=== PATIENT | male | born 1975 | race African-American/Black ===

== ENCOUNTER 2017-02-10 10:43 | Emergency (ER) | payer SELFPAY ==
[2017-02-10] MEDS ORDERED: diphenhydrAMINE HCl 50 MG/ML 1 ML VIAL ONE (11:29)
[2017-02-10] MEDS ORDERED: Metoclopramide HCl 10 MG/2 ML VIAL ONE (11:29)
[2017-02-10] MEDS ORDERED: Sodium Chloride 0.9% 0 ML ONE (11:30)
[2017-02-10] MEDS ORDERED: Sodium Chloride 0.9% 100 ML ONE (11:30)
[2017-02-10 11:43] LABS: #Basophils 0.1 thou/uL (0.0-0.2); #Eosinphils 0.1 thou/uL (0.0-0.7); #Lymphocytes 0.9 thou/uL (1.20-3.40); #Monocytes 0.7 thou/uL (0.11-0.59); #Neutrophils 5.3 thou/uL (1.40-6.50); %Basophils 1.1 % (0.0-1.0); %Eosinophils 2.1 % (0.0-10.0); %Lymphocytes 12.6 % (21.0-51.0); %Monocytes 9.5 % (0.0-10.0); %Neutrophils 74.7 % (42.0-75.0); Hemoglobin 14.3 g/dL (14.0-18.0); Mean Corpuscular HGB CONC 33.9 g/dL (32.0-36.0); Mean Corpuscular Hemoglobin 27.5 pg (27.0-31.0); Mean Corpuscular Volume 81.2 fl (80.0-94.0); Mean Platelet Volume 12.6 fL (7.4-10.4); Platelet Count 138 thou/uL (130-400); RBC Distribution Width 12.6 % (11.5-14.5); Red Blood Cell (RBC) Count 5.19 mill/uL (4.70-6.10); White Blood Cell (WBC) Count 7.1 thou/uL (4.8-10.8)
[2017-02-10 11:52] LABS: ALT (SGPT) 28 U/L (0-55); AST (SGOT) 19 U/L (5-34); Albumin 3.9 g/dL (3.5-5.0); Alkaline Phosphatase 66 U/L (40-150); Anion Gap 13 mmol/L (10-20); BUN (Urea Nitrogen) 11 mg/dL (8.9-20.6); Bilirubin, Total 1.5 mg/dL (0.2-1.2); CK (CPK) 172 U/L (30-200); Calc. Creatinine Clearance 0 mL/min (70-130); Calcium 9.2 mg/dL (7.8-10.44); Carbon Dioxide 26 mmol/L (22-29); Chloride 102 mmol/L (98-107); Estimated GFR-MDRD Greater than 90; Globulin 3.6 g/dL (2.4-3.5); Glucose 90 mg/dL (70-105); Potassium 3.6 mmol/L (3.5-5.1); Protein, Total 7.5 g/dL (6.0-8.3); Sodium 137 mmol/L (136-145)
[2017-02-10 11:54] LABS: CKMB 2.1 ng/mL (0-6.6); Troponin I Less than 0.010 ng/mL (< 0.028)
[2017-02-10 12:17] LABS: Bilirubin Negative (Negative); Blood, Urine Negative (Negative); Clarity Clear (Clear); Glucose, Urine (Dipstick) Negative (Negative); Leukocyte Negative (Negative); Nitrite Negative (Negative); Protein, Urine (Dipstick) Negative (Neg-Trace)
[2017-02-10 13:09] LABS: Bacteria/HPF None Seen HPF (None Seen); RBC/HPF None Seen HPF (0-3); Squamous Epithelial 0-3 HPF (0-3); WBC/HPF 0-3 HPF (0-3)
== END 2017-02-10 12:29 | disposition home or self-care (01) ==
LOC: NAV ERS 10:43
DX: G43.909 Migraine, unspecified, not intractable, without status migrainosus (principal); R07.9 Chest pain, unspecified; I10 Essential (primary) hypertension; E78.5 Hyperlipidemia, unspecified; F17.210 Nicotine dependence, cigarettes, uncomplicated; Z79.899 Other long term (current) drug therapy
CPT/HCPCS: 36415; 80053; 81001; 82550; 82553; 84484; 85025; 93005; 96374; 96375; J1200; J2765; J7050

== ENCOUNTER 2017-03-19 08:05 | Emergency (ER) | payer SELFPAY ==
[2017-03-19] MEDS ORDERED: Acetaminophen 325 MG TAB ONE (09:04)
== END 2017-03-19 09:10 | disposition home or self-care (01) ==
LOC: NAV ERS 08:05
DX: B34.9 Viral infection, unspecified (principal); G47.30 Sleep apnea, unspecified; I10 Essential (primary) hypertension; E78.5 Hyperlipidemia, unspecified; E78.00 Pure hypercholesterolemia, unspecified; F17.210 Nicotine dependence, cigarettes, uncomplicated; Z79.899 Other long term (current) drug therapy
CPT/HCPCS: 87081; 87430; 99284

== ENCOUNTER 2017-05-29 16:39 | Emergency (ER) | payer OTHER ==
--- NOTE | 2017-05-29 17:22 | RAD ---
EXAM: LEFT WRIST THREE VIEWS 05/29/17 HISTORY: Pain. COMPARISON: None. FINDINGS: The intercarpal and radiocarpal joint space is preserved. No fracture. IMPRESSION: Unremarkable left wrist three views. POS: [facility]
== END 2017-05-29 17:37 | disposition home or self-care (01) ==
LOC: NAV ERS 16:39
DX: S63.502A Unspecified sprain of left wrist, initial encounter (principal); I10 Essential (primary) hypertension; E78.5 Hyperlipidemia, unspecified; F17.210 Nicotine dependence, cigarettes, uncomplicated; Z79.899 Other long term (current) drug therapy; W20.8XXA Other cause of strike by thrown, projected or falling object, initial encounter
CPT/HCPCS: 29125

== ENCOUNTER 2017-07-07 17:34 | Emergency (ER) | payer OTHER ==
[2017-07-07] MEDS ORDERED: Ketorolac Tromethamine 60 MG/2 ML VIAL ONE (17:55)
== END 2017-07-07 19:40 | disposition home or self-care (01) ==
LOC: NAV ERS 17:34
DX: M77.11 Lateral epicondylitis, right elbow (principal); I10 Essential (primary) hypertension; E78.5 Hyperlipidemia, unspecified; F17.210 Nicotine dependence, cigarettes, uncomplicated; Z79.899 Other long term (current) drug therapy
CPT/HCPCS: 96372; J1885

== ENCOUNTER 2017-08-12 15:41 | Emergency (ER) | payer SELFPAY, OTHER | END 2017-08-12 16:35 | disposition home or self-care (01) | LOC: NAV ERS 15:41 | DX: M77.9 Enthesopathy, unspecified (principal); E78.5 Hyperlipidemia, unspecified; I10 Essential (primary) hypertension; F17.210 Nicotine dependence, cigarettes, uncomplicated | CPT/HCPCS: 96372; J2270 ==

== ENCOUNTER 2018-01-29 10:10 | Emergency (ER) | payer OTHER ==
[2018-01-29] MEDS ORDERED: Nitroglycerin 0.4 MG TAB (25 Tab Bottle) ONE (10:32)
[2018-01-29 10:40] LABS: #Eosinphils 0.2 thou/uL (0.0-0.7); #Lymphocytes 1.2 thou/uL (1.20-3.40); #Monocytes 0.3 thou/uL (0.11-0.59); #Neutrophils 2.6 thou/uL (1.40-6.50); %Basophils 0.8 % (0.0-1.0); %Eosinophils 3.7 % (0.0-10.0); %Lymphocytes 28.2 % (21.0-51.0); %Monocytes 6.3 % (0.0-10.0); Hemoglobin 15.4 g/dL (14.0-18.0); Mean Corpuscular HGB CONC 33.2 g/dL (32.0-36.0); Mean Corpuscular Hemoglobin 27.3 pg (27.0-31.0); Mean Corpuscular Volume 82.1 fl (80.0-94.0); Mean Platelet Volume 12.5 fL (7.4-10.4); Platelet Count 154 thou/uL (130-400); RBC Distribution Width 13.2 % (11.5-14.5); Red Blood Cell (RBC) Count 5.65 mill/uL (4.70-6.10); White Blood Cell (WBC) Count 4.2 thou/uL (4.8-10.8)
[2018-01-29] MEDS ORDERED: Acetaminophen 500 MG TAB ONE (10:42)
[2018-01-29 10:54] LABS: ALT (SGPT) 40 U/L (8-55); AST (SGOT) 25 U/L (5-34); Albumin 4.3 g/dL (3.5-5.0); Alkaline Phosphatase 86 U/L (40-150); Anion Gap 14 mmol/L (10-20); BUN (Urea Nitrogen) 12 mg/dL (8.9-20.6); Bilirubin, Total 0.9 mg/dL (0.2-1.2); Calc. Creatinine Clearance 0 mL/min (70-130); Carbon Dioxide 28 mmol/L (22-29); Chloride 100 mmol/L (98-107); Estimated GFR-MDRD Greater than 90; Globulin 3.7 g/dL (2.4-3.5); Glucose 133 mg/dL (70-105); Potassium 3.8 mmol/L (3.5-5.1); Sodium 138 mmol/L (136-145)
[2018-01-29 10:55] LABS: CKMB 5.6 ng/mL (0-6.6); Troponin I Less than 0.010 ng/mL (< 0.028)
--- NOTE | 2018-01-29 10:59 | RAD ---
PA AND LATERAL OF THE CHEST: INDICATION: Chest pain, chest tightness, and shortness of breath since yesterday morning. COMPARISON: Prior exam dated 12/26/05 and 07/22/16. FINDINGS: There is very mild cardiomegaly which is stable. The pulmonary vasculature is normal. The lungs are clear. No pleural effusion is evident. No acute osseous abnormality is evident. IMPRESSION: Stable examination of the chest. There is stable mild cardiomegaly without evidence of cardiac decom pensation. POS: [facility]
[2018-01-29 14:44] LABS: Troponin I Less than 0.010 ng/mL (< 0.028)
== END 2018-01-29 14:54 | disposition home or self-care (01) ==
LOC: NAV ERS 10:10
DX: R07.89 Other chest pain (principal); I10 Essential (primary) hypertension; E78.5 Hyperlipidemia, unspecified; F17.210 Nicotine dependence, cigarettes, uncomplicated; Z79.899 Other long term (current) drug therapy
CPT/HCPCS: 71046; 80053; 82553; 84484; 85025; 93005; 99406

== ENCOUNTER 2018-04-23 20:05 | Emergency (ER) | payer OTHER ==
[2018-04-23] MEDS ORDERED: cloNIDine 0.1 MG TAB ONE (20:44)
--- NOTE | 2018-04-23 20:52 | RAD ---
RADIOGRAPH LEFT WRIST 3 VIEWS: 04/23/18 HISTORY: 42-year-old male with left wrist pain. FINDINGS: No fracture is identified. If there is snuff box tenderness following trauma that suggests an occult scaphoid fracture, then the general recommendation is immobilization and followup imaging in 5 to 10 days. Alignment is normal. No high grade DJD. No periosteal elevation or destructive osseous lesion. IMPRESSION: Negative. POS: [facility]
[2018-04-23] MEDS ORDERED: Naproxen 500 MG TAB ONE (21:16)
[2018-04-23] MEDS ORDERED: traMADol HCl 50 MG TAB ONE (21:16)
== END 2018-04-23 21:23 | disposition home or self-care (01) ==
LOC: NAV ERS 20:05
DX: M77.9 Enthesopathy, unspecified (principal); I10 Essential (primary) hypertension; E78.5 Hyperlipidemia, unspecified; F17.210 Nicotine dependence, cigarettes, uncomplicated; Z79.899 Other long term (current) drug therapy

== ENCOUNTER 2018-07-13 18:52 | Emergency (ER) | payer OTHER, SELFPAY ==
[2018-07-13] MEDS ORDERED: Ketorolac Tromethamine 60 MG/2 ML VIAL ONE (19:06)
[2018-07-13] MEDS ORDERED: Cyclobenzaprine 10 MG TAB ONE (19:06)
== END 2018-07-13 20:05 | disposition home or self-care (01) ==
LOC: NAV ERS 18:52
DX: R07.9 Chest pain, unspecified (principal); M54.2 Cervicalgia; E78.5 Hyperlipidemia, unspecified; I10 Essential (primary) hypertension; F17.210 Nicotine dependence, cigarettes, uncomplicated; Z79.899 Other long term (current) drug therapy; Z79.891 Long term (current) use of opiate analgesic
CPT/HCPCS: 96372; J1885

== ENCOUNTER 2019-04-01 19:49 | Emergency (ER) | payer SELFPAY ==
[2019-04-01] MEDS ORDERED: Naproxen 500 MG TAB ONE (20:20)
[2019-04-01] MEDS ORDERED: cloNIDine 0.2 MG TAB ONE (20:20)
== END 2019-04-01 21:10 | disposition home or self-care (01) ==
LOC: NAV ERS 19:49
DX: S29.012A Strain of muscle and tendon of back wall of thorax, initial encounter (principal); I10 Essential (primary) hypertension; E78.5 Hyperlipidemia, unspecified; G43.909 Migraine, unspecified, not intractable, without status migrainosus; F17.210 Nicotine dependence, cigarettes, uncomplicated; Z79.899 Other long term (current) drug therapy; X50.9XXA Other and unspecified overexertion or strenuous movements or postures, initial encounter
CPT/HCPCS: 93005

== ENCOUNTER 2019-07-07 18:48 | Emergency (ER) | payer SELFPAY ==
[2019-07-07 19:57] LABS: #Basophils 0.1 thou/uL (0.0-0.2); #Eosinphils 0.2 thou/uL (0.0-0.7); #Lymphocytes 1.9 thou/uL (1.20-3.40); #Monocytes 0.4 thou/uL (0.11-0.59); #Neutrophils 2.1 thou/uL (1.40-6.50); %Basophils 1.2 % (0.0-1.0); %Eosinophils 3.9 % (0.0-10.0); %Lymphocytes 41.5 % (21.0-51.0); %Monocytes 8.7 % (0.0-10.0); %Neutrophils 44.8 % (42.0-75.0); Hemoglobin 13.6 g/dL (14.0-18.0); Mean Corpuscular HGB CONC 33.4 g/dL (32.0-36.0); Mean Corpuscular Hemoglobin 27.2 pg (27.0-31.0); Mean Corpuscular Volume 81.5 fL (78.0-98.0); Mean Platelet Volume 9.8 fL (7.4-10.4); Platelet Count 145 thou/uL (130-400); RBC Distribution Width 13.2 % (11.5-14.5); Red Blood Cell (RBC) Count 5.01 mill/uL (4.70-6.10); White Blood Cell (WBC) Count 4.6 thou/uL (4.8-10.8)
[2019-07-07] MEDS ORDERED: Morphine 4 MG/ML VIAL ONE (20:16)
[2019-07-07] MEDS ORDERED: Ondansetron PF 4 MG/2 ML Vial ONE (20:16)
[2019-07-07 20:17] LABS: Anion Gap 14 mmol/L (10-20); BUN (Urea Nitrogen) 16 mg/dL (8.9-20.6); Calc. Creatinine Clearance 0 mL/min (70-130); Calcium 9.6 mg/dL (7.8-10.44); Carbon Dioxide 27 mmol/L (22-29); Chloride 101 mmol/L (98-107); Estimated GFR-MDRD Greater than 90; Glucose 106 mg/dL (70-105); Potassium 3.3 mmol/L (3.5-5.1); Sodium 139 mmol/L (136-145)
--- NOTE | 2019-07-07 20:38 | CT ---
POSTCONTRAST SOFT TISSUE NECK CT 07/07/19 HISTORY: Injury. Neck pain starting around 4 p.m. today. COMPARISON: 03/20/17. FINDINGS: The visualized brain parenchyma is unremarkable. Bilateral ocular lenses are appropriately located B oth globes are intact. Retrobulbar fat is preserved. Symmetric attenuation of the optic nerves and oc ular rectus muscles. Mild mucosa disease of the maxillary sinuses. Adequate mastoid air cell aeration. There is nonspecific fullness of the adenoid tonsils and palatine tonsils. There are no obvious anny s in the oral cavity. Midline fatty raphae of the tongue is preserved. Hypertrophy of Waldeyer's rin g is similar to the previous examination. Epiglottis is difficult to appreciate due to motion but maribell ears to be grossly normal in caliber. Pre-epiglottic fat is preserved. There is effacement of the rig ht piriform sinus, similar to the previous examination. The supraglottic, glottic, and subglottic lar ynx is unremarkable. Symmetric attenuation of the sternocleidomastoid muscles. Symmetric attenuation of the salivary glands and submandibular glands. Unremarkable thyroid gland. No evidence of lymphadenopathy with regards to the soft tissues of the neck. Central spinal canal and neural foramina are patent. Evaluation is limited by technique. Based on the axial and reformatted images, cervical spine vertebral body height is maintained. No craniocervical dissociation. Appropriate alignment of the lateral masses of C1 and C2. Odontoid process is intact. N o fracture. Upper mediastinum and lung apices are unremarkable. IMPRESSION: 1. Redemonstration of hypertrophy with regards to Waldeyer's ring. Correlate for infectious, inf lammatory or neoplastic process. 2. No evidence of high grade central canal stenosis or high grade neural foraminal narrowing. Ev aluation is limited by technique. There is at least mild central canal stenosis at C5-C6 and mild to moderate central canal stenosis at C6-C7. Nonemergent cervical spine MRI can be performed for better interrogation of the central spinal canal and neural foramina. 3. No evidence of cervical spine fracture. POS: [facility]
== END 2019-07-07 21:05 | disposition home or self-care (01) ==
LOC: NAV ERS 18:48
DX: S19.9XXA Unspecified injury of neck, initial encounter (principal); E78.5 Hyperlipidemia, unspecified; E78.00 Pure hypercholesterolemia, unspecified; I10 Essential (primary) hypertension; G43.909 Migraine, unspecified, not intractable, without status migrainosus; F17.210 Nicotine dependence, cigarettes, uncomplicated; Z79.899 Other long term (current) drug therapy; W26.8XXA Contact with other sharp object(s), not elsewhere classified, initial encounter
CPT/HCPCS: 70491; 80048; 85025; 96374; 96375; J2270; J2405

== ENCOUNTER 2019-07-17 20:05 | Emergency (ER) | payer SELFPAY ==
[2019-07-17] MEDS ORDERED: diphenhydrAMINE 50 MG/ML VIAL ONE (20:30)
[2019-07-17] MEDS ORDERED: Metoclopramide HCl 10 MG/2 ML VIAL ONE (20:30)
[2019-07-17] MEDS ORDERED: Sodium Chloride 0.9% 1,000 ML ONE (20:30)
[2019-07-17 21:01] LABS: ALT (SGPT) 46 U/L (8-55); AST (SGOT) 26 U/L (5-34); Albumin 4.1 g/dL (3.5-5.0); Alkaline Phosphatase 85 U/L (40-150); Anion Gap 14 mmol/L (10-20); BUN (Urea Nitrogen) 9 mg/dL (8.9-20.6); Bilirubin, Total 0.8 mg/dL (0.2-1.2); Calc. Creatinine Clearance 0 mL/min (70-130); Calcium 9.8 mg/dL (7.8-10.44); Carbon Dioxide 23 mmol/L (22-29); Chloride 102 mmol/L (98-107); Estimated GFR-MDRD Greater than 90; Globulin 3.3 g/dL (2.4-3.5); Glucose 105 mg/dL (70-105); Potassium 3.2 mmol/L (3.5-5.1); Protein, Total 7.4 g/dL (6.0-8.3); Sodium 136 mmol/L (136-145)
[2019-07-17 21:04] LABS: #Basophils 0.1 thou/uL (0.0-0.2); #Eosinphils 0.2 thou/uL (0.0-0.7); #Lymphocytes 1.7 thou/uL (1.20-3.40); #Monocytes 0.5 thou/uL (0.11-0.59); #Neutrophils 3.1 thou/uL (1.40-6.50); %Basophils 2.1 % (0.0-1.0); %Eosinophils 3.4 % (0.0-10.0); %Lymphocytes 30.2 % (21.0-51.0); %Monocytes 9.3 % (0.0-10.0); Hemoglobin 14.3 g/dL (14.0-18.0); Mean Corpuscular HGB CONC 32.9 g/dL (32.0-36.0); Mean Corpuscular Hemoglobin 26.9 pg (27.0-31.0); Mean Corpuscular Volume 81.7 fL (78.0-98.0); Platelet Count 153 thou/uL (130-400); Platelet Morphology Comment Appears Adequate; RBC Morphology Normal; Red Blood Cell (RBC) Count 5.33 mill/uL (4.70-6.10); White Blood Cell (WBC) Count 5.6 thou/uL (4.8-10.8)
--- NOTE | 2019-07-17 21:13 | CT ---
Head CT without contrast 07/17/2019: COMPARISON: 07/23/2014 HISTORY: Headache TECHNIQUE: Axial CT imaging at 5 mm intervals from vertex through skull base without contrast FINDINGS: Imaged paranasal sinuses and mastoid air cells well-aerated. No displaced calvarial fractur e. No intracranial hemorrhage, midline shift, mass effect, or ventricular enlargement. IMPRESSION: No acute findings.
== END 2019-07-17 21:30 | disposition home or self-care (01) ==
LOC: NAV ERS 20:05
DX: R51 Headache (principal); E78.5 Hyperlipidemia, unspecified; E78.00 Pure hypercholesterolemia, unspecified; I10 Essential (primary) hypertension; F17.210 Nicotine dependence, cigarettes, uncomplicated; Z79.899 Other long term (current) drug therapy
CPT/HCPCS: 70450; 80053; 85025; 96365; 96375; J1200; J2765; J7050

== ENCOUNTER 2019-08-04 09:38 | Emergency (ER) | payer SELFPAY ==
[2019-08-04] MEDS ORDERED: Lidocaine 5% Patch TD SCH (10:45)
[2019-08-04] MEDS ORDERED: Fentanyl 100 MCG/2 ML VIAL ONE (10:54)
[2019-08-04] MEDS ORDERED: Naproxen 500 MG TAB ONE (10:55)
[2019-08-04] MEDS ORDERED: Magnesium Citrate 300 ML BOT ONE (10:55)
[2019-08-04] MEDS ORDERED: cloNIDine 0.1 MG TAB ONE (10:55)
[2019-08-04] MEDS ORDERED: Ondansetron PF 4 MG/2 ML Vial ONE (11:00)
[2019-08-04] MEDS ORDERED: Lidocaine Patch Removal 1 EACH TOP SCH (23:00)
== END 2019-08-04 12:25 | disposition home or self-care (01) ==
LOC: NAV ERS 09:38
DX: S46.811A Strain of other muscles, fascia and tendons at shoulder and upper arm level, right arm, initial encounter (principal); E78.5 Hyperlipidemia, unspecified; E78.00 Pure hypercholesterolemia, unspecified; I10 Essential (primary) hypertension; G43.909 Migraine, unspecified, not intractable, without status migrainosus; F17.210 Nicotine dependence, cigarettes, uncomplicated; Z79.899 Other long term (current) drug therapy; X50.9XXA Other and unspecified overexertion or strenuous movements or postures, initial encounter
CPT/HCPCS: 96374; 96375; J2405; J3010

== ENCOUNTER 2019-09-28 19:45 | Emergency (ER) | payer SELFPAY ==
[2019-09-28] MEDS ORDERED: Ketorolac Tromethamine 60 MG/2 ML VIAL ONE (20:31)
== END 2019-09-28 21:10 | disposition home or self-care (01) ==
LOC: NAV ERS 19:45
DX: S39.012A Strain of muscle, fascia and tendon of lower back, initial encounter (principal); E78.5 Hyperlipidemia, unspecified; E78.00 Pure hypercholesterolemia, unspecified; I10 Essential (primary) hypertension; F17.210 Nicotine dependence, cigarettes, uncomplicated; X50.0XXA Overexertion from strenuous movement or load, initial encounter
CPT/HCPCS: 96372; 99283; J1885

== ENCOUNTER 2020-08-12 11:37 | Emergency (ER) | payer SELFPAY ==
[2020-08-12] MEDS ORDERED: methylPREDNISolone Acetate 40 mg/ml Vial ONE (12:27)
[2020-08-12] MEDS ORDERED: traMADol HCl 50 MG TAB ONE (12:27)
--- NOTE | 2020-08-12 13:30 | RAD ---
RIGHT HIP RADIOGRAPHS 2 VIEWS: DATE: 11/12/2019. PROVIDED CLINICAL HISTORY: Right leg pain. FINDINGS: Atherosclerotic vascular calcifications are demonstrated. There is no evidence for a fracture or oth er acute osseous abnormality. If there is persistent clinical concern, conservative management and f ollowup imaging are advised. IMPRESSION: As above. POS: [facility]
== END 2020-08-12 12:53 | disposition home or self-care (01) ==
LOC: NAV ERS 11:37
DX: M54.31 Sciatica, right side (principal); E78.5 Hyperlipidemia, unspecified; E78.00 Pure hypercholesterolemia, unspecified; I10 Essential (primary) hypertension; G43.909 Migraine, unspecified, not intractable, without status migrainosus; F17.210 Nicotine dependence, cigarettes, uncomplicated; Z79.899 Other long term (current) drug therapy
CPT/HCPCS: 96372; J2920

== ENCOUNTER 2021-03-14 17:51 | Emergency (ER) | payer OTHER ==
[2021-03-14] MEDS ORDERED: Ibuprofen 200 MG TAB ONE (18:15)
== END 2021-03-14 19:30 | disposition home or self-care (01) ==
LOC: NAV ERS 17:51
DX: S60.222A Contusion of left hand, initial encounter (principal); E78.5 Hyperlipidemia, unspecified; E78.00 Pure hypercholesterolemia, unspecified; I10 Essential (primary) hypertension; F17.210 Nicotine dependence, cigarettes, uncomplicated; Z79.899 Other long term (current) drug therapy; W01.0XXA Fall on same level from slipping, tripping and stumbling without subsequent striking against object, initial encounter

== ENCOUNTER 2022-02-03 13:09 | Emergency (ER) | payer OTHER, SELFPAY ==
[2022-02-03] MEDS ORDERED: Aspirin Chewable 81 MG TAB ONE (13:32)
[2022-02-03 13:44] LABS: #Basophils 0.1 thou/uL (0.0-0.2); #Eosinphils 0.1 thou/uL (0.0-0.7); #Lymphocytes 1.7 thou/uL (1.20-3.40); #Monocytes 0.5 thou/uL (0.11-0.59); #Neutrophils 2.1 thou/uL (1.40-6.50); %Basophils 1.5 % (0.0-1.0); %Eosinophils 2.9 % (0.0-10.0); %Lymphocytes 39.2 % (21.0-51.0); %Monocytes 10.1 % (0.0-10.0); %Neutrophils 46.4 % (42.0-75.0); Hemoglobin 13.7 g/dL (14.0-18.0); Mean Corpuscular HGB CONC 31.4 g/dL (32.0-36.0); Mean Corpuscular Hemoglobin 26.8 pg (27.0-31.0); Mean Corpuscular Volume 85.3 fL (78.0-98.0); Mean Platelet Volume 12.2 fL (7.4-10.4); Platelet Count 144 thou/uL (130-400); RBC Distribution Width 12.7 % (11.5-14.5); Red Blood Cell (RBC) Count 5.13 mill/uL (4.70-6.10); White Blood Cell (WBC) Count 4.4 thou/uL (4.8-10.8)
[2022-02-03 14:21] LABS: ALT (SGPT) 30 U/L (8-55); AST (SGOT) 20 U/L (5-34); Albumin 3.9 g/dL (3.5-5.0); Alkaline Phosphatase 90 U/L (40-110); Anion Gap 13 mmol/L (10-20); BUN (Urea Nitrogen) 11 mg/dL (8.9-20.6); Bilirubin, Total 0.9 mg/dL (0.2-1.2); CK (CPK) 251 U/L (30-200); Calc. Creatinine Clearance 0 mL/min (70-130); Calcium 9.5 mg/dL (7.8-10.44); Carbon Dioxide 26 mmol/L (22-29); Chloride 103 mmol/L (98-107); Glucose 101 mg/dL (70-105); Lipase 35 U/L (8-78); Potassium 3.8 mmol/L (3.5-5.1); Protein, Total 6.9 g/dL (6.0-8.3); Sodium 138 mmol/L (136-145)
[2022-02-03 16:29] LABS: SARS-CoV-2 NAA Rapid Test Not Detected (NotDetected)
[2022-02-03] MEDS ORDERED: Metoprolol Tartrate 50 MG TAB ONE (16:36)
== END 2022-02-03 18:22 | disposition short-term general hospital (02) ==
LOC: NAV ERS 13:09
DX: R07.89 Other chest pain (principal); I10 Essential (primary) hypertension; E78.5 Hyperlipidemia, unspecified; E78.00 Pure hypercholesterolemia, unspecified; F17.210 Nicotine dependence, cigarettes, uncomplicated; Z79.82 Long term (current) use of aspirin; Z79.899 Other long term (current) drug therapy; Z20.822 Contact with and (suspected) exposure to COVID-19
CPT/HCPCS: 71045; 80053; 82550; 83690; 84484; 85025; 93005; U0002

== ENCOUNTER 2022-03-08 17:29 | Emergency (ER) | payer OTHER ==
[2022-03-08] MEDS ORDERED: Nitroglycerin 0.4 MG TAB (25 Tab Bottle) ONE (17:58)
[2022-03-08] MEDS ORDERED: Nitroglycerin 2% Ointment 1 INCH/1 GM Packet ONE (18:08)
[2022-03-08 18:10] LABS: #Basophils 0.1 thou/uL (0.0-0.2); #Eosinphils 0.2 thou/uL (0.0-0.7); #Lymphocytes 1.5 thou/uL (1.20-3.40); #Monocytes 0.6 thou/uL (0.11-0.59); #Neutrophils 2.7 thou/uL (1.40-6.50); %Basophils 1.1 % (0.0-1.0); %Eosinophils 3.6 % (0.0-10.0); %Lymphocytes 30.7 % (21.0-51.0); %Monocytes 11.2 % (0.0-10.0); %Neutrophils 53.5 % (42.0-75.0); Hemoglobin 13.5 g/dL (14.0-18.0); Mean Corpuscular Hemoglobin 26.7 pg (27.0-31.0); Mean Corpuscular Volume 83.6 fL (78.0-98.0); Mean Platelet Volume 12.6 fL (7.4-10.4); Platelet Count 153 thou/uL (130-400); RBC Distribution Width 12.7 % (11.5-14.5); Red Blood Cell (RBC) Count 5.05 mill/uL (4.70-6.10)
[2022-03-08 18:25] LABS: ALT (SGPT) 43 U/L (8-55); AST (SGOT) 20 U/L (5-34); Albumin 4.3 g/dL (3.5-5.0); Alkaline Phosphatase 101 U/L (40-110); Anion Gap 17 mmol/L (10-20); BUN (Urea Nitrogen) 15 mg/dL (8.9-20.6); CK (CPK) 259 U/L (30-200); Calc. Creatinine Clearance 0 mL/min (70-130); Calcium 9.4 mg/dL (7.8-10.44); Carbon Dioxide 27 mmol/L (22-29); Chloride 99 mmol/L (98-107); Globulin 3.6 g/dL (2.4-3.5); Glucose 97 mg/dL (70-105); Lipase 30 U/L (8-78); Potassium 3.5 mmol/L (3.5-5.1); Protein, Total 7.9 g/dL (6.0-8.3); Sodium 139 mmol/L (136-145)
[2022-03-08 22:11] LABS: Troponin I Less than 0.010 ng/mL (< 0.028)
== END 2022-03-08 21:55 | disposition home or self-care (01) ==
LOC: NAV ERS 17:29
DX: R07.9 Chest pain, unspecified (principal); I25.2 Old myocardial infarction; Z87.891 Personal history of nicotine dependence; E78.5 Hyperlipidemia, unspecified; I10 Essential (primary) hypertension; G43.909 Migraine, unspecified, not intractable, without status migrainosus; Z79.899 Other long term (current) drug therapy; Z79.82 Long term (current) use of aspirin
CPT/HCPCS: 71045; 80053; 82550; 83690; 84484; 85025; 93005

== ENCOUNTER 2023-10-22 21:23 | Emergency (ER) | payer OTHER ==
[2023-10-22 21:52] LABS: #Basophils 0.1 thou/uL (0.0-0.2); #Eosinphils 0.3 thou/uL (0.0-0.7); #Lymphocytes 1.9 thou/uL (1.20-3.40); #Monocytes 0.3 thou/uL (0.11-0.59); #Neutrophils 2.6 thou/uL (1.40-6.50); %Basophils 1.2 % (0.0-1.0); %Eosinophils 5.8 % (0.0-10.0); %Lymphocytes 36.5 % (21.0-51.0); %Monocytes 5.9 % (0.0-10.0); %Neutrophils 50.6 % (42.0-75.0); Hematocrit 41.9 % (42.0-52.0); Hemoglobin 14.1 g/dL (14.0-18.0); Mean Corpuscular HGB CONC 33.5 g/dL (32.0-36.0); Mean Corpuscular Hemoglobin 27.7 pg (27.0-31.0); Mean Corpuscular Volume 82.6 fl (78.0-98.0); Mean Platelet Volume 10.6 fL (7.4-10.4); Platelet Count 146 10x3/uL (130-400); RBC Distribution Width 12.4 % (11.5-14.5); Red Blood Cell (RBC) Count 5.08 mill/uL (4.70-6.10); White Blood Cell (WBC) Count 5.1 10x3/uL (4.8-10.8)
[2023-10-22] MEDS ORDERED: Nitroglycerin 2% Ointment 1 INCH/1 GM Packet ONE (21:58)
[2023-10-22] MEDS ORDERED: Aspirin Chewable 81 MG TAB ONE (21:58)
[2023-10-22 22:09] LABS: Troponin I 0.034 ng/mL (< 0.028)
[2023-10-22 22:11] LABS: ALT (SGPT) 42 U/L (8-55); AST (SGOT) 29 U/L (5-34); Albumin 4.3 g/dL (3.5-5.0); Alkaline Phosphatase 109 U/L (40-110); Anion Gap 15 mmol/L (10-20); BUN (Urea Nitrogen) 15 mg/dL (8.9-20.6); Bilirubin, Total 0.8 mg/dL (0.2-1.2); Calc. Creatinine Clearance 0 mL/min (70-130); Calcium 9.4 mg/dL (7.8-10.44); Carbon Dioxide 25 mmol/L (22-29); Chloride 99 mmol/L (98-107); Estimated GFR 87; Globulin 3.7 g/dL (2.4-3.5); Glucose 196 mg/dL (70-105); Lipase 177 U/L (8-78); Potassium 3.3 mmol/L (3.5-5.1); Sodium 136 mmol/L (136-145)
== END 2023-10-22 23:28 | disposition short-term general hospital (02) ==
LOC: NAV ERS 21:23
DX: M25.512 Pain in left shoulder (principal); R07.9 Chest pain, unspecified; R79.89 Other specified abnormal findings of blood chemistry; R74.8 Abnormal levels of other serum enzymes; I25.10 Atherosclerotic heart disease of native coronary artery without angina pectoris; I25.2 Old myocardial infarction; I10 Essential (primary) hypertension; Z79.899 Other long term (current) drug therapy; Z79.82 Long term (current) use of aspirin; Z87.891 Personal history of nicotine dependence
CPT/HCPCS: 71045; 80053; 83690; 84484; 85025; 85379; 93005

== ENCOUNTER 2024-12-18 09:11 | Emergency (ER) | payer OTHER, SELFPAY ==
[2024-12-18] MEDS ORDERED: Benzonatate 100 MG CAP ONE ×2 (09:43→09:48)
[2024-12-18] MEDS ORDERED: Ondansetron ODT 4 MG TAB ONE (09:44)
== END 2024-12-18 10:27 | disposition home or self-care (01) ==
LOC: NAV ERS 09:11
DX: B34.9 Viral infection, unspecified (principal); I10 Essential (primary) hypertension; Z95.5 Presence of coronary angioplasty implant and graft; Z87.891 Personal history of nicotine dependence
CPT/HCPCS: 87428; 99284; Q0162

== ENCOUNTER 2025-06-13 08:22 | Emergency (ER) | payer BC ==
[2025-06-13] MEDS ORDERED: Aspirin Chewable 81 MG TAB ONE (08:45)
[2025-06-13] MEDS ORDERED: Nitroglycerin 0.4 MG TAB 1 EACH ONE ×2 (08:45→09:03)
[2025-06-13 09:04] LABS: ALT (SGPT) 25 U/L (Less than 45); AST (SGOT) 32 U/L (11-34); Albumin 4.2 g/dL (3.1-4.5); Alkaline Phosphatase 75 U/L (40-110); Anion Gap 19 mmol/L (10-20); BUN (Urea Nitrogen) 17 mg/dL (8.9-20.6); Bilirubin, Total 0.8 mg/dL (0.3-1.2); Calc. Creatinine Clearance 0 mL/min (70-130); Calcium 9.0 mg/dL (7.8-10.44); Carbon Dioxide 23 mmol/L (22-29); Chloride 98 mmol/L (98-107); Globulin 3.7 g/dL (2.4-3.5); Glucose 111 mg/dL (70-105); Lipase 38 U/L (8-78); Potassium 3.2 mmol/L (3.5-5.1); Sodium 137 mmol/L (136-145); Troponin I 0.010 ng/mL (< 0.028)
[2025-06-13 09:42] LABS: White Blood Cell (WBC) Count 5.3 10x3/uL (4.8-10.8)
[2025-06-13 09:43] LABS: #Lymphocytes 1.5 thou/uL (1.20-3.40); #Neutrophils 3.1 thou/uL (1.40-6.50); %Basophils 1.6 % (0.0-1.0); %Eosinophils 3.7 % (0.0-10.0); %Lymphocytes 28.1 % (21.0-51.0); %Monocytes 9.0 % (0.0-10.0); %Neutrophils 57.6 % (42.0-75.0); Hematocrit 43.7 % (42.0-52.0); Hemoglobin 14.3 g/dL (14.0-18.0); Manual Diff?? NO; Mean Corpuscular Hemoglobin 26.5 pg (27.0-31.0); Mean Corpuscular Volume 80.8 fl (78.0-98.0); Platelet Count 170 10x3/uL (130-400); Red Blood Cell (RBC) Count 5.41 mill/uL (4.70-6.10)
[2025-06-13 09:44] LABS: #Basophils 0.1 thou/uL (0.0-0.2); #Eosinophils 0.2 thou/uL (0.0-0.7); #Monocytes 0.5 thou/uL (0.11-0.59)
[2025-06-13 12:56] LABS: Troponin I Less than 0.010 ng/mL (< 0.028)
== END 2025-06-13 14:42 | disposition left against medical advice (07) ==
LOC: NAV ERS 08:22
DX: R07.2 Precordial pain (principal); I25.10 Atherosclerotic heart disease of native coronary artery without angina pectoris; I10 Essential (primary) hypertension; Z87.891 Personal history of nicotine dependence; Z79.899 Other long term (current) drug therapy
CPT/HCPCS: 71045; 80053; 83690; 84484; 85025; 93005; 94760

== ENCOUNTER 2025-07-28 19:09 | Emergency (ER) | payer BC | END 2025-07-28 20:08 | disposition home or self-care (01) | LOC: NAV ERS 19:09 | DX: S63.613A Unspecified sprain of left middle finger, initial encounter (principal); I25.10 Atherosclerotic heart disease of native coronary artery without angina pectoris; I25.2 Old myocardial infarction; I10 Essential (primary) hypertension; W23.1XXA Caught, crushed, jammed, or pinched between stationary objects, initial encounter; Y99.0 Civilian activity done for income or pay; Z95.5 Presence of coronary angioplasty implant and graft; Z87.891 Personal history of nicotine dependence; Z79.899 Other long term (current) drug therapy | CPT/HCPCS: 99283 ==